=== PATIENT | female | born 1955 | race Two or more races ===

== ENCOUNTER → 2019-12-21 | Emergency (ER) | payer MEDICAID, OTHER ==
[~2019-12-21] VITALS: Ht 152.4 cm; Wt 70.3 kg
[~2019-12-21] MED LIST: PANTOPRAZOLE 40 MG TAB PO ONE; cefTRIAXone SOD 1,000 MG VL IM ONE
[2019-12-21 16:37] LABS: Basophils # (auto) 0.1 10 ^3/uL (0-0.2); Eosinophils # (auto) 0.1 10 ^3/uL (0-0.8); Hematocrit 28.3 % (36.0-46.0); Red Blood Cells 3.57 10^6/uL (4.0-5.20)
[2019-12-21 16:38] LABS: Basophils % (auto) 1.5 % (0.0-2.0); Eosinophils % (auto) 0.9 % (0.0-7.0); Hemoglobin 9.4 g/dL (12.2-16.2); Lymphocytes % (auto) 37.4 % (10.0-50.0); Mean Corpuscular Hemoglobin 26.5 pg (28.0-32.0); Mean Corpuscular Hgb Conc. 33.4 g/dL (32.0-36.0); Mean Corpuscular Volume 79.4 fL (80.0-100.0); Monocytes # (auto) 0.7 10 ^3/uL (0-1.3); Monocytes % (auto) 9.3 % (0.0-12.0); Neutrophils # (auto) 4.1 10 ^3/uL (1.6-8.6); Neutrophils % (auto) 50.9 % (37.0-80.0); Nucleated Red Blood Cells % 0.3 %; Platelet Count (auto) 294 10^3/uL (140-450); Red Cell Distribution Width 19.7 % (11.8-14.3)
[2019-12-21 17:02] LABS: Alanine Aminotransferase 34 U/L (13-56); Albumin 3.4 g/dL (3.4-5.0); Anion Gap 7 (5-15); Aspartate Aminotransferase 34 U/L (15-37); BUN/Creatinine Ratio 25.6; Blood Urea Nitrogen 21 mg/dL (7-18); Calcium 9.7 mg/dL (8.5-10.1); Carbon Dioxide 26 mmol/L (21-32); Chloride 105 mmol/L (98-107); GFR African American 90 mL/min; GFR Non-African American 75 mL/min; Glucose 135 mg/dL (74-106); Sodium 138 mmol/L (136-145)
[2019-12-21 17:07] LABS: Alkaline Phosphatase 72 U/L (45-117); Bilirubin, Total 0.5 mg/dL (0.2-1.0); Total Protein 7.6 g/dL (6.4-8.2)
[2019-12-21 18:21] LABS: Urine Bacteria NONE SEEN /hpf (None Seen); Urine Blood Negative /uL (Negative); Urine Specific Gravity 1.005 (1.001-1.035); Urine WBC 4 /hpf (0 - 5)
[2019-12-21 20:34] VITALS: BP 132/74
== END | disposition home or self-care (01) ==
LOC: ER 15:53
DX: K29.70 Gastritis, unspecified, without bleeding (principal); N39.0 Urinary tract infection, site not specified; D64.9 Anemia, unspecified; R07.89 Other chest pain; R94.6 Abnormal results of thyroid function studies; E78.5 Hyperlipidemia, unspecified; I10 Essential (primary) hypertension; Z87.11 Personal history of peptic ulcer disease; Z98.51 Tubal ligation status
CPT/HCPCS: 36415; 71045; 74176; 80053; 81001; 83690; 83735; 83880; 84443; 84484; 85025; 93005; 96372; 99285; J0696

== ENCOUNTER 2020-07-04 13:49 | Inpatient (IN) | payer MEDICAID ==
[~2020-07-04] VITALS: Ht 152.4 cm; Wt 74.4 kg
[2020-07-04] MEDS ORDERED: PANTOPRAZOLE 40 MG/10 ML VIAL INJ IV ONE ×2 (14:30→22:00)
[2020-07-04] MEDS ORDERED: SODIUM CHLORIDE 0.9% 1,000 ML IVB ONE ×2 (14:30→22:00)
[2020-07-04 14:39] LABS: Basophils # (auto) 0.1 10 ^3/uL (0-0.2); Basophils % (auto) 1.3 % (0.0-2.0); Eosinophils # (auto) 0.1 10 ^3/uL (0-0.8); Hemoglobin 7.5 g/dL (12.2-16.2); Lymphocytes # (auto) 1.9 10 ^3/uL (0.4-5.4); Lymphocytes % (auto) 25.5 % (10.0-50.0); Mean Corpuscular Hemoglobin 22.5 pg (28.0-32.0); Mean Corpuscular Hgb Conc. 31.1 g/dL (32.0-36.0); Mean Corpuscular Volume 72.2 fL (80.0-100.0); Monocytes # (auto) 0.9 10 ^3/uL (0-1.3); Monocytes % (auto) 11.2 % (0.0-12.0); Neutrophils # (auto) 4.7 10 ^3/uL (1.6-8.6); Nucleated Red Blood Cells % 0.2 %; Platelet Count (auto) 388 10^3/uL (140-450); Red Blood Cells 3.33 10^6/uL (4.0-5.20); White Blood Cell 7.6 10^3/uL (4.4-10.8)
[2020-07-04 14:41] LABS: Red Cell Distribution Width 25.4 % (11.8-14.3)
[2020-07-04 14:49] LABS: Urine Bacteria FEW /hpf (None Seen); Urine Blood Negative /uL (Negative); Urine Mucus FEW (None Seen); Urine Specific Gravity 1.011 (1.001-1.035); Urine WBC 42 /hpf (0 - 5)
[2020-07-04 14:58] LABS: INR 0.96 (0.9-1.15); Partial Thromboplastin Time 20.8 sec (23.0-31.2)
[2020-07-04 15:01] LABS: Albumin 3.6 g/dL (3.4-5.0); Calcium 9.2 mg/dL (8.5-10.1); Potassium 3.7 mmol/L (3.5-5.1)
[2020-07-04 15:27] LABS: Bilirubin, Total 0.8 mg/dL (0.2-1.0); Total Protein 7.8 g/dL (6.4-8.2)
[2020-07-04] MEDS ORDERED: ONDANSETRON HCL 4 MG/2 ML VIAL IV PRN ×2 (16:30→22:00)
[2020-07-04] MEDS ORDERED: HYDROcodone-ACET 5/325MG TAB PO PRN ×2 (16:30→22:00)
[2020-07-04] MEDS ORDERED: LABETALOL HCL 5 MG/ML 4ML SYRINGE IV PRN ×2 (16:30→22:00)
[2020-07-04] MEDS ORDERED: DEXTROSE (50%) 50ML SYRG IV PRN ×2 (16:30→22:00)
[2020-07-04] MEDS ORDERED: MORPHINE SULF INJ 2 MG/ML SYRINGE 1ML IV PRN ×3 (16:30→22:00)
[2020-07-04] MEDS ORDERED: ACETAMINOPHEN 500 MG TAB PO PRN ×2 (16:30→22:00)
[2020-07-04] MEDS ORDERED: NITROGLYCERIN 0.4 MG SL TAB SL PRN ×2 (16:30→22:00)
[2020-07-04] MEDS ORDERED: SODIUM CHLORIDE 0.9% 1,000 ML IV SCH ×2 (16:30→22:00)
[2020-07-04 16:49] LABS: % Iron Saturation 1.9 % (15-50)
[2020-07-04] MEDS: ACCU-CHEK COMFORT CURVE STRIP VI SCH ×3 (17:00→22:34)
[2020-07-04] MEDS: InsuLIN REG 1unit/0.01ml Soln (100units/ml) SC SCH ×3 (17:00→22:00)
--- NOTE | 2020-07-04 18:15 | NUR ---
Telemetry admit from ER SHAYLAJESSICA admitted to Telemetry unit after verbal report received from GEORGETTE Aviles, ER nurse. Patient oriented to Yessy Madrigal, primary RN, unit, room, bed, and unit policies regarding patient care and visiting hours. Patient is awake, alert and oriented X4. No signs or symptoms of shortness of breath, discomfort or pain. Patient now on continuous telemetry monitoring, tele box # 49 and telemetry reading on arrival to unit is sinus rhythm @ 86 bpm. IV to right antecubital, 20 gauge, patent and saline locked. Bed locked, in lowest position, call light within reach, all questions and concerns addressed, patient verbalized understanding.
[2020-07-04 18:21] VITALS: BP 135/77
[2020-07-04] MEDS ORDERED: ATOR40TA52 PO (18:42)
[2020-07-04] MEDS ORDERED: LOSA-69 PO (18:42)
[2020-07-04] MEDS ORDERED: LEV50T PO (18:42)
--- NOTE | 2020-07-04 19:17 | NUR ---
Care endorsed to GEORGETTE Latif, night nurse.
--- NOTE | 2020-07-04 19:20 | NUR ---
Opening Shift Note Assumed patient care from Yessy PALOMINO. Patient is AOx4 and is resting in bed w/ HOB at 30 degrees. Patient bed locked in lowest position and call light is within reach. No s/s of distress or SOB. No pain noted at this time. Will continue to monitor.
[2020-07-04 20:00] VITALS: BP 127/79
[2020-07-04 20:35] VITALS: BP 127/79
--- NOTE | 2020-07-04 20:38 | NUR ---
Blood transfusion Verified with another RN and started. Patient AOx4 and vitals have been assessed and documented under transfusion. Will continue to monitor.
[2020-07-04 20:53] VITALS: BP 140/75
[2020-07-04 22:00] VITALS: BP 137/73
[2020-07-04] MEDS ORDERED: PANTOPRAZOLE 40 MG/10 ML VIAL INJ IV SCH (22:00)
--- NOTE | 2020-07-04 23:26 | NUR ---
Blood Transfusion Ended Patient vitals taken and documented. No s/s or distress or SOB. No pain noted. No averse reaction noted. Will continue to monitor.
[2020-07-04 23:31] VITALS: BP 133/78
[2020-07-04] MEDS: MORPHINE SULF INJ 2 MG/ML SYRINGE 1ML IV PRN (23:58)
[2020-07-05 05:00] VITALS: BP 141/72
[2020-07-05] MEDS: ACCU-CHEK COMFORT CURVE STRIP VI SCH ×4 (06:30→22:09)
[2020-07-05] MEDS: InsuLIN REG 1unit/0.01ml Soln (100units/ml) SC SCH ×4 (06:31→22:00)
--- NOTE | 2020-07-05 07:47 | NUR ---
Opening Shift Note Assumed care of patient, awake, alert and oriented X4. No S/S of distress/SOB, complains of lower abdominal pain, 3/10 only when urinating. IV to right antecubital, 20 gauge, patent and infusing 0.9% NS @ 75 ml/hr. Instructed on POC and to call for assist PRN, verbalized understanding. Bed locked, in lowest position, call light within reach, will continue to monitor for changes Q1hr and PRN.
[2020-07-05 08:37] VITALS: BP 161/83
[2020-07-05] MEDS ORDERED: cefTRIAXone 1GM/50ML D5W 50 ML IV SCH (09:00)
[2020-07-05] MEDS: cefTRIAXone 1GM/50ML D5W 50 ML IV SCH (09:12)
[2020-07-05] MEDS: PANTOPRAZOLE 40 MG/10 ML VIAL INJ IV SCH ×2 (10:03→22:09)
[2020-07-05 10:11] LABS: BUN/Creatinine Ratio 11.3; Calcium 8.5 mg/dL (8.5-10.1); Potassium 4.4 mmol/L (3.5-5.1)
[2020-07-05] MEDS: SODIUM CHLORIDE 0.9% 1,000 ML IV SCH ×2 (10:18→19:31)
[2020-07-05 10:27] LABS: Basophils # (auto) 0.1 10 ^3/uL (0-0.2); Eosinophils # (auto) 0.1 10 ^3/uL (0-0.8); Hematocrit 26.5 % (36.0-46.0); Hemoglobin 8.4 g/dL (12.2-16.2); Monocytes # (auto) 0.6 10 ^3/uL (0-1.3); Neutrophils # (auto) 3.1 10 ^3/uL (1.6-8.6); White Blood Cell 4.9 10^3/uL (4.4-10.8)
[2020-07-05 10:29] LABS: Basophils % (auto) 1.6 % (0.0-2.0); Eosinophils % (auto) 1.4 % (0.0-7.0); Lymphocytes % (auto) 20.2 % (10.0-50.0); Mean Corpuscular Hemoglobin 24.3 pg (28.0-32.0); Mean Corpuscular Hgb Conc. 31.7 g/dL (32.0-36.0); Mean Corpuscular Volume 76.4 fL (80.0-100.0); Monocytes % (auto) 12.2 % (0.0-12.0); Neutrophils % (auto) 64.6 % (37.0-80.0); Nucleated Red Blood Cells % 0.1 %; Platelet Count (auto) 325 10^3/uL (140-450); Red Blood Cells 3.47 10^6/uL (4.0-5.20)
[2020-07-05 10:30] LABS: Red Cell Distribution Width 25.5 % (11.8-14.3)
--- NOTE | 2020-07-05 11:43 | NUR ---
GI Dr Ricki Robert at bedside for GI consult, new orders received and followed through. Patient updated on plan of care with translation in Greenlandic provided by GEORGETTE Lo, patient verbalized understanding.
[2020-07-05 12:34] VITALS: BP 141/72
--- NOTE | 2020-07-05 16:33 | NUR ---
IV removal IV DC'd to right forearm with sterile technique, catheter fully intact. Patient complaining of pain at site, assessed, no swelling, redness or signs of infiltration noted. Pressure dressing applied to site. Patient tolerated procedure well. IV insertion IV access obtained, via clean sterile technique by inserting 20 gauge catheter to the left antecubital. IV secured properly. No trauma to site. Patient tolerated procedure well.
[2020-07-05 17:00] VITALS: BP 153/90
--- NOTE | 2020-07-05 19:26 | NUR ---
Care endorsed to GEORGETTE Braun, night nurse.
[2020-07-05] MEDS: MORPHINE SULF INJ 2 MG/ML SYRINGE 1ML IV PRN (20:02)
[2020-07-05 21:43] VITALS: BP 137/73
[2020-07-05 22:32] LABS: Hematocrit 26.2 % (36.0-46.0); Hemoglobin 8.4 g/dL (12.2-16.2)
[2020-07-06 05:00] VITALS: BP 117/78
[2020-07-06] MEDS: InsuLIN REG 1unit/0.01ml Soln (100units/ml) SC SCH ×4 (06:11→22:00)
[2020-07-06] MEDS: ACCU-CHEK COMFORT CURVE STRIP VI SCH ×4 (06:11→22:17)
[2020-07-06] MEDS: SODIUM CHLORIDE 0.9% 1,000 ML IV SCH ×2 (06:11→16:34)
--- NOTE | 2020-07-06 07:35 | NUR ---
Opening Shift Note Assumed care of patient, awake and alert, salvadorean speaking. No S/S of distress/SOB or pain. Instructed on POC and to call for assist PRN, will continue to monitor for changes Q1hr and PRN.
[2020-07-06] MEDS ORDERED: NALOXONE HCL 0.4 MG/ML VIAL ONE (08:46)
[2020-07-06] MEDS ORDERED: FLUMAZENIL 0.1 MG/ML INJ 10ML MDV IV ONE (08:46)
[2020-07-06] MEDS ORDERED: diphenhdrAMINE HCL 50 MG/1 ML VL ONE (08:47)
[2020-07-06] MEDS ORDERED: fentaNYL CITRATE 100 MCG/2 ML VL ONE (08:47)
[2020-07-06] MEDS ORDERED: SODIUM CHLORIDE LOCK 10 ML ONE (08:47)
[2020-07-06] MEDS ORDERED: LIDOCAINE VISCOUS 2% 15ML UD ONE (08:47)
[2020-07-06] MEDS ORDERED: MIDAZOLAM HCL 5 MG/ML-1ML VIAL ONE (08:47)
[2020-07-06] MEDS: PANTOPRAZOLE 40 MG/10 ML VIAL INJ IV SCH ×2 (09:13→22:00)
[2020-07-06] MEDS: cefTRIAXone 1GM/50ML D5W 50 ML IV SCH (09:13)
[2020-07-06 09:21] VITALS: BP 109/73
[2020-07-06 10:10] LABS: Hematocrit 27.9 % (36.0-46.0)
[2020-07-06 13:00] VITALS: BP 117/70
[2020-07-06 17:25] VITALS: BP 118/66
[2020-07-06 21:35] VITALS: BP 100/77
[2020-07-06 22:29] LABS: Hematocrit 27.3 % (36.0-46.0); Hemoglobin 8.7 g/dL (12.2-16.2)
[2020-07-07] MEDS: SODIUM CHLORIDE 0.9% 1,000 ML IV SCH (02:15)
[2020-07-07 05:14] VITALS: BP 119/68
[2020-07-07 05:45] LABS: Basophils # (auto) 0.1 10 ^3/uL (0-0.2); Eosinophils # (auto) 0.1 10 ^3/uL (0-0.8); Hemoglobin 8.7 g/dL (12.2-16.2); Monocytes # (auto) 0.6 10 ^3/uL (0-1.3); Monocytes % (auto) 11.1 % (0.0-12.0); Neutrophils # (auto) 3.2 10 ^3/uL (1.6-8.6); White Blood Cell 5.2 10^3/uL (4.4-10.8)
[2020-07-07 05:48] LABS: Basophils % (auto) 1.5 % (0.0-2.0); Eosinophils % (auto) 2.3 % (0.0-7.0); Hematocrit 26.8 % (36.0-46.0); Lymphocytes # (auto) 1.2 10 ^3/uL (0.4-5.4); Lymphocytes % (auto) 23.7 % (10.0-50.0); Mean Corpuscular Hemoglobin 24.6 pg (28.0-32.0); Mean Corpuscular Hgb Conc. 32.4 g/dL (32.0-36.0); Mean Corpuscular Volume 75.8 fL (80.0-100.0); Neutrophils % (auto) 61.4 % (37.0-80.0); Nucleated Red Blood Cells % 0.2 %; Platelet Count (auto) 287 10^3/uL (140-450); Red Blood Cells 3.53 10^6/uL (4.0-5.20)
[2020-07-07 05:56] LABS: Red Cell Distribution Width 24.2 % (11.8-14.3)
[2020-07-07 06:06] LABS: BUN/Creatinine Ratio 11.3; Calcium 8.9 mg/dL (8.5-10.1); Potassium 3.9 mmol/L (3.5-5.1)
[2020-07-07] MEDS: ACCU-CHEK COMFORT CURVE STRIP VI SCH ×2 (06:42→11:43)
[2020-07-07] MEDS: InsuLIN REG 1unit/0.01ml Soln (100units/ml) SC SCH ×2 (06:42→11:30)
--- NOTE | 2020-07-07 07:30 | NUR ---
Opening Shift Note Assumed care of patient, awake and alert. No S/S of distress/SOB or pain. Instructed on POC and to call for assist PRN, will continue to monitor for changes Q1hr and PRN. Fall precautions in place per safety protocol.
--- NOTE | 2020-07-07 08:30 | NUR ---
Hospitalist MD Vargas at bedside, aware of patient status including patient refusing EGD at this time and requesting to be discharged. Per MD Vargas, he will place discharge order. MD Robert aware of EGD being cancelled. Will carry out new orders.
[2020-07-07 09:00] VITALS: BP 127/84
[2020-07-07] MEDS: cefTRIAXone 1GM/50ML D5W 50 ML IV SCH (09:00)
[2020-07-07] MEDS: PANTOPRAZOLE 40 MG/10 ML VIAL INJ IV SCH (10:00)
[2020-07-07 12:07] VITALS: BP 127/84
[2020-07-07 13:00] VITALS: BP 137/64
--- NOTE | 2020-07-07 13:41 | NUR ---
Discharge instructions given as ordered. Encourage to follow up with PMD as instructed. All questions and concerns addressed. Patient verbalized understanding. Medication reconciliation form completed and copy given to patient. Home medications held in Pharmacy returned to patient. IV removed with catheter intact, pressure dressing applied. Telemetry unit returned to ICU. Patient taken to vehicle via wheelchair with all personal belongings, accompanied by staff. No distress noted at time of departure.
== END 2020-07-07 13:40 | disposition home or self-care (01) | DRG 254 ==
LOC: ER 13:49 → TELE-WESTW 13:50 → ER 17:46
PROVIDERS: ADMIT Nurse Practitioner Acute Care; ATTEND Internal Medicine
PROC: 30230N1 Transfusion of Nonautologous Red Blood Cells into Peripheral Vein, Open Approach (ICD-10-PCS; principal; 2020-07-04)
DX: K92.1 Melena (principal); D25.9 Leiomyoma of uterus, unspecified; E11.9 Type 2 diabetes mellitus without complications; I10 Essential (primary) hypertension; D62 Acute posthemorrhagic anemia; N39.0 Urinary tract infection, site not specified; E66.9 Obesity, unspecified; E78.5 Hyperlipidemia, unspecified; F41.9 Anxiety disorder, unspecified; Z98.51 Tubal ligation status; Z79.899 Other long term (current) drug therapy; Z68.32 Body mass index [BMI] 32.0-32.9, adult; Z79.84 Long term (current) use of oral hypoglycemic drugs; Z82.49 Family history of ischemic heart disease and other diseases of the circulatory system; Z83.3 Family history of diabetes mellitus; Z87.11 Personal history of peptic ulcer disease; Z90.49 Acquired absence of other specified parts of digestive tract
CPT/HCPCS: 36415; 71045; 74176; 80048; 80053; 81001; 82270; 82962; 83036; 83540; 83550; 83735; 85014; 85018; 85025; 85610; 85730; 86850; 86900; 86901; 86920; 87086; 93005; 96361; 96374; C9113; G0378; J0696; J2250; J2405

== ENCOUNTER 2020-10-11 22:28 | Emergency (ER) | payer MEDICARE, MEDICAID ==
[~2020-10-11] VITALS: Ht 152.4 cm; Wt 70.3 kg
[~2020-10-11 22:28] MED LIST changes: +ATOR40TA52 PO; +LEV50T PO; +LOSA-69 PO; -PANTOPRAZOLE 40 MG TAB PO ONE; -cefTRIAXone SOD 1,000 MG VL IM ONE
[2020-10-11 23:31] LABS: Urine Bacteria NONE SEEN /hpf (None Seen); Urine Blood Negative /uL (Negative); Urine Specific Gravity 1.011 (1.001-1.035); Urine WBC 1 /hpf (0 - 5)
[2020-10-12 01:00] VITALS: BP 154/84
[2020-10-12] MEDS ORDERED: ACETAMINOPHEN/CODEINE#3 (300/30mg) TAB PO ONE (02:00)
[2020-10-12] MEDS ORDERED: ONDANSETRON ODT 4 MG TAB PO ONE (02:00)
== END 2020-10-12 03:35 | disposition home or self-care (01) ==
LOC: ER 22:30
DX: S16.1XXA Strain of muscle, fascia and tendon at neck level, initial encounter (principal); M47.892 Other spondylosis, cervical region; E11.9 Type 2 diabetes mellitus without complications; E78.5 Hyperlipidemia, unspecified; I10 Essential (primary) hypertension; Z90.49 Acquired absence of other specified parts of digestive tract; Z79.899 Other long term (current) drug therapy; X58.XXXA Exposure to other specified factors, initial encounter; Y93.89 Activity, other specified; Y92.89 Other specified places as the place of occurrence of the external cause; Y99.8 Other external cause status
CPT/HCPCS: 70450; 70490; 72125; 81001; 99285; Q0162; 93005

== ENCOUNTER 2021-12-08 11:19 | Emergency (ER) | payer MEDICARE, MEDICAID ==
[~2021-12-08] VITALS: Ht 160 cm; Wt 71.2 kg
[2021-12-08] MEDS ORDERED: cloNIDine HCL 0.1 MG TAB PO ONE (11:45)
[2021-12-08 14:08] LABS: Basophils # (auto) 0.1 10 ^3/uL (0-0.2); Basophils % (auto) 1.1 % (0.0-2.0); Eosinophils # (auto) 0.1 10 ^3/uL (0-0.8); Eosinophils % (auto) 1.1 % (0.0-7.0); Hematocrit 44.6 % (36.0-46.0); Hemoglobin 15.5 g/dL (12.2-16.2); Lymphocytes # (auto) 1.6 10 ^3/uL (0.4-5.4); Lymphocytes % (auto) 25.8 % (10.0-50.0); Mean Corpuscular Hgb Conc. 34.7 g/dL (32.0-36.0); Mean Corpuscular Volume 86.6 fL (80.0-100.0); Monocytes # (auto) 0.7 10 ^3/uL (0-1.3); Monocytes % (auto) 10.3 % (0.0-12.0); Neutrophils # (auto) 3.9 10 ^3/uL (1.6-8.6); Neutrophils % (auto) 61.7 % (37.0-80.0); Nucleated Red Blood Cells % 0.2 %; Red Blood Cells 5.15 10^6/uL (4.0-5.20); Red Cell Distribution Width 14.9 % (11.8-14.3); White Blood Cell 6.4 10^3/uL (4.4-10.8)
[2021-12-08 14:11] LABS: Potassium 3.9 mmol/L (3.5-5.1)
[2021-12-08 14:18] LABS: Albumin 3.7 g/dL (3.4-5.0); BUN/Creatinine Ratio 17.7; Bilirubin, Total 1.1 mg/dL (0.2-1.0); Calcium 9.6 mg/dL (8.5-10.1); Total Protein 8.4 g/dL (6.4-8.2)
[2021-12-08 15:45] VITALS: BP 163/88
[2021-12-08] MEDS ORDERED: CLON0.1T PO (15:59)
[2021-12-08 17:04] LABS: Urine Bacteria FEW /hpf (None Seen); Urine Blood Negative /uL (Negative); Urine Specific Gravity 1.013 (1.001-1.035); Urine WBC 30 /hpf (0 - 5)
== END 2021-12-08 16:10 | disposition home or self-care (01) ==
LOC: ER 11:19
DX: I10 Essential (primary) hypertension (principal); E11.9 Type 2 diabetes mellitus without complications; E78.5 Hyperlipidemia, unspecified; Z90.49 Acquired absence of other specified parts of digestive tract; Z98.51 Tubal ligation status
CPT/HCPCS: 36415; 80053; 81001; 84484; 85025; 93005